=== PATIENT | female | born 1960 | race Caucasian/White ===

== ENCOUNTER → 2023-03-13 | Outpatient (CLI) | payer BC ==
--- NOTE | 2023-03-13 12:24 | Diagnostic Imaging Report ---
PROCEDURE: CT sinuses without contrast TECHNIQUE: Multiple contiguous axial images were obtained through the sinuses without the use of intravenous contrast. Coronal and sagittal reformations were then performed. Auto Exposure Controls were utilized during the CT exam to meet ALARA standards for radiation dose reduction. INDICATION: Headaches. FINDINGS: The frontal sinus is clear. Ethmoid air cells appear to be clear apart from very minimal mucosal thickening on the right. The sphenoid sinus is clear. Left maxillary sinus as well as the right maxillary sinus demonstrate very minimal mucosal thickening. No air-fluid levels are detected. Mastoids are well aerated. There is some thickening of the ostiomeatal complexes bilaterally. Nasal septum is midline. IMPRESSION: There is some mild mucosal thickening of the ostiomeatal complexes bilaterally as well as bilateral maxillary sinuses but no air-fluid levels or evidence of sinusitis. Dictated by: Dictated on workstation # [id number]
== END ==
LOC: RAD FS 09:07
PROVIDERS: ATTEND Otolaryngology Otolaryngology/Facial Plastic Surgery
DX: J32.8 Other chronic sinusitis (principal)
CPT/HCPCS: 70486